=== PATIENT | male | born 1960 | race Two or more races ===

== ENCOUNTER 2018-03-28 09:59 | Outpatient (CLI) | payer OTHER ==
[~2018-03-28 09:59] MED LIST: XYZAL5 MG
== END 2018-03-28 10:12 | disposition home or self-care (01) ==
LOC: RAD 501 09:59
DX: Z01.810 Encounter for preprocedural cardiovascular examination (principal)

== ENCOUNTER 2018-04-05 07:30 | Day surgery (SDC) | payer OTHER | END 2018-04-05 16:00 | disposition home or self-care (01) | LOC: CIR.AMB 07:30 | DX: M24.542 Contracture, left hand (principal) ==